=== PATIENT | male | born 1960 | race Caucasian/White ===

== ENCOUNTER 2018-07-14 19:27 | Observation (INO) | payer OTHER ==
[2018-07-14 19:42] LABS: ADD MAN DIFF? NO
[2018-07-14] MEDS: NITROGLYCERIN 2% 1 GM OINT PKT TD (19:43)
[2018-07-14] MEDS: LORAZEPAM 2 MG INJ IV (19:43)
[2018-07-14 19:47] LABS: BASOPHIL # 0.1 10^3/ul (0.0-0.1); EOSINOPHILS # 0.3 10^3/ul (0.0-0.5); EOSINOPHILS % 4.1 % (0.0-7.0); HEMATOCRIT 47.7 % (42.0-52.0); HEMOGLOBIN 16.3 g/dl (14.0-18.0); LYMPHOCYTES # 2.4 10^3/ul (0.8-2.9); LYMPHOCYTES % 30.6 % (15.0-51.0); MEAN CORPUSCULAR HEMOGLOBIN 31.7 pg (29.0-33.0); MEAN CORPUSCULAR HGB CONC 34.2 g/dl (32.0-37.0); MEAN CORPUSCULAR VOLUME 92.6 fl (82.0-101.0); MEAN PLATELET VOLUME 9.9 fl (7.4-10.4); MONOCYTE # 0.8 10^3/ul (0.3-0.9); NEUTROPHIL # 4.2 10^3/ul (1.6-7.5); NEUTROPHILS % 53.9 % (39.0-77.0); PLATELET COUNT 221 10^3/UL (140-415); RED BLOOD COUNT 5.15 10^6/ul (4.70-6.10); RED CELL DISTRIBUTION WIDTH 13.8 % (11.5-14.5)
[2018-07-14 19:47] LABS: WHITE BLOOD COUNT 7.9 10^3/ul (4.8-10.8)
[2018-07-14 20:06] LABS: ANION GAP 19 (5-13); BLOOD UREA NITROGEN 19 mg/dl (7-20); CALCIUM 9.4 mg/dl (8.4-10.2); CARBON DIOXIDE 20 mmol/L (21-31); CHLORIDE 103 mmol/L (97-110); CREATININE 1.28 mg/dl (0.61-1.24); Estimated GFR 58 mL/min (>60); GLUCOSE 92 mg/dl (70-220); SODIUM 142 mmol/L (135-144)
[2018-07-14 20:17] LABS: TROPONIN-I 0.029 ng/ml (0.000-0.120)
[2018-07-14] MEDS ORDERED: ONDANSETRON 4 MG INJ IV (21:00)
[2018-07-14] MEDS ORDERED: ACETAMINOPHEN 325 MG TAB PO (21:00)
[2018-07-15 03:17] LABS: CREATINE KINASE 154 IU/L (23-200)
[2018-07-15 03:30] LABS: CK INDEX 0.9; CK-MB 1.44 ng/ml (0.0-2.4); TROPONIN-I 0.016 ng/ml (0.000-0.120)
[2018-07-15] MEDS ORDERED: NITROGLYCERIN (SL) 0.4 MG TAB SL (03:30)
[2018-07-15] MEDS ORDERED: ONDANSETRON 4 MG INJ IV (03:30)
[2018-07-15] MEDS ORDERED: NACL 0.9% 3 ML SYG IV (03:30)
[2018-07-15 07:51] LABS: ADD MAN DIFF? NO
[2018-07-15 07:55] LABS: WHITE BLOOD COUNT 4.4 10^3/ul (4.8-10.8)
[2018-07-15 07:55] LABS: BASOPHIL # 0.1 10^3/ul (0.0-0.1); BASOPHILS % 1.1 % (0.0-2.0); EOSINOPHILS # 0.3 10^3/ul (0.0-0.5); EOSINOPHILS % 6.8 % (0.0-7.0); HEMATOCRIT 47.1 % (42.0-52.0); HEMOGLOBIN 15.8 g/dl (14.0-18.0); LYMPHOCYTES # 1.3 10^3/ul (0.8-2.9); LYMPHOCYTES % 30.2 % (15.0-51.0); MEAN CORPUSCULAR HEMOGLOBIN 31.5 pg (29.0-33.0); MEAN CORPUSCULAR HGB CONC 33.5 g/dl (32.0-37.0); MEAN CORPUSCULAR VOLUME 93.8 fl (82.0-101.0); MEAN PLATELET VOLUME 9.7 fl (7.4-10.4); MONOCYTE # 0.6 10^3/ul (0.3-0.9); MONOCYTES % 12.8 % (0.0-11.0); NEUTROPHIL # 2.2 10^3/ul (1.6-7.5); NEUTROPHILS % 48.6 % (39.0-77.0); PLATELET COUNT 164 10^3/UL (140-415); RED BLOOD COUNT 5.02 10^6/ul (4.70-6.10)
[2018-07-15 08:05] LABS: HEMOGLOBIN A1C 5.4 % (0-5.9)
[2018-07-15 08:14] LABS: CREATINE KINASE 143 IU/L (23-200)
[2018-07-15 08:16] LABS: ALANINE AMINOTRANSFERASE 33 IU/L (13-69); ALBUMIN 4.2 g/dl (3.3-4.9); ALBUMIN/GLOBULIN RATIO 1.13; ALKALINE PHOSPHATASE 83 IU/L (42-121); ANION GAP 11 (5-13); ASPARTATE AMINO TRANSFERASE 46 IU/L (15-46); BILIRUBIN,INDIRECT 0.8 mg/dl (0-1.1); BILIRUBIN,TOTAL 0.8 mg/dl (0.2-1.3); BLOOD UREA NITROGEN 14 mg/dl (7-20); CALCIUM 8.9 mg/dl (8.4-10.2); CARBON DIOXIDE 27 mmol/L (21-31); CHLORIDE 104 mmol/L (97-110); CHOL/HDL RATIO 3.2 RATIO; CHOLESTEROL 230 mg/dl (100-200); CREATININE 0.99 mg/dl (0.61-1.24); Estimated GFR > 60 mL/min (>60); GLUCOSE 105 mg/dl (70-220); HDL CHOLESTEROL 71 mg/dl (28-71); LDL CHOLESTEROL,CALCULATED 130 mg/dl; MAGNESIUM 2.2 mg/dl (1.7-2.5); POTASSIUM 4.1 mmol/L (3.5-5.1); SODIUM 142 mmol/L (135-144); TOTAL PROTEIN 7.9 g/dl (6.1-8.1); TRIGLYCERIDES 145 mg/dl (0-149)
[2018-07-15 08:26] LABS: TROPONIN-I 0.034 ng/ml (0.000-0.120)
[2018-07-15] MEDS: ASPIRIN 81 MG TAB PO (09:51)
[2018-07-15] MEDS: HEPARIN 5,000 UNIT/1 ML VIAL SC ×2 (09:51→21:26)
[2018-07-15] MEDS: ALBUTEROL/IPRATROPIUM (NEB) 3 ML AMP HHN (11:36)
[2018-07-15] MEDS: ATORVASTATIN 40 MG TAB PO (21:04)
[2018-07-15] MEDS: GUAIFENESIN/DM 5ML CUP PO (22:10)
[2018-07-15] MEDS: ZOLPIDEM 5 MG TAB PO (22:10)
[2018-07-15] MEDS: ACETAMINOPHEN 325 MG TAB PO (22:10)
[2018-07-16] MEDS: AMLODIPINE 10 MG TAB PO ×2 (05:13→08:34)
[2018-07-16 06:10] LABS: ADD MAN DIFF? NO
[2018-07-16 06:19] LABS: WHITE BLOOD COUNT 5.7 10^3/ul (4.8-10.8)
[2018-07-16 06:19] LABS: BASOPHIL # 0.1 10^3/ul (0.0-0.1); BASOPHILS % 1.1 % (0.0-2.0); EOSINOPHILS # 0.4 10^3/ul (0.0-0.5); EOSINOPHILS % 6.5 % (0.0-7.0); HEMATOCRIT 50.4 % (42.0-52.0); HEMOGLOBIN 16.7 g/dl (14.0-18.0); LYMPHOCYTES # 1.8 10^3/ul (0.8-2.9); LYMPHOCYTES % 30.9 % (15.0-51.0); MEAN CORPUSCULAR HEMOGLOBIN 31.3 pg (29.0-33.0); MEAN CORPUSCULAR HGB CONC 33.1 g/dl (32.0-37.0); MEAN CORPUSCULAR VOLUME 94.6 fl (82.0-101.0); MONOCYTE # 0.7 10^3/ul (0.3-0.9); MONOCYTES % 11.4 % (0.0-11.0); NEUTROPHIL # 2.8 10^3/ul (1.6-7.5); NEUTROPHILS % 49.7 % (39.0-77.0); PLATELET COUNT 173 10^3/UL (140-415); RED BLOOD COUNT 5.33 10^6/ul (4.70-6.10); RED CELL DISTRIBUTION WIDTH 13.5 % (11.5-14.5)
[2018-07-16 06:32] LABS: INR 0.91; PROTIME 12.4 Sec (11.9-14.9)
[2018-07-16 06:46] LABS: TROPONIN-I 0.028 ng/ml (0.000-0.120)
[2018-07-16 06:49] LABS: LIPASE 104 U/L (23-300)
[2018-07-16 06:50] LABS: ANION GAP 10 (5-13); BLOOD UREA NITROGEN 18 mg/dl (7-20); CALCIUM 9.7 mg/dl (8.4-10.2); CARBON DIOXIDE 27 mmol/L (21-31); CHLORIDE 105 mmol/L (97-110); CREATININE 1.16 mg/dl (0.61-1.24); Estimated GFR > 60 mL/min (>60); GLUCOSE 97 mg/dl (70-220); MAGNESIUM 2.3 mg/dl (1.7-2.5); PHOSPHORUS 3.7 mg/dl (2.5-4.9); POTASSIUM 4.4 mmol/L (3.5-5.1); SODIUM 142 mmol/L (135-144)
[2018-07-16] MEDS: ASPIRIN 81 MG TAB PO (08:22)
[2018-07-16] MEDS: CLOPIDOGREL 75 MG TAB PO (08:22)
[2018-07-16] MEDS: HEPARIN 5,000 UNIT/1 ML VIAL SC (08:28)
[2018-07-16] MEDS ORDERED: ZOLPIDEM 5 MG TAB PO (21:00)
[2018-07-17] MEDS ORDERED: AMLODIPINE 10 MG TAB PO (09:00)
== END 2018-07-16 13:10 | disposition home or self-care (01) ==
LOC: E/R 19:27 → TEL 20:32
DX: R07.9 Chest pain, unspecified (principal); F17.200 Nicotine dependence, unspecified, uncomplicated; I10 Essential (primary) hypertension; E78.5 Hyperlipidemia, unspecified; Z79.82 Long term (current) use of aspirin
CPT/HCPCS: 36415; 71045; 80048; 80053; 80061; 82550; 82553; 83036; 83690; 83735; 84100; 84443; 84484; 85025; 85610; 87400; 93005; 94664; 96374; 99285-25; G0378

== ENCOUNTER 2018-08-21 01:02 | Emergency (ER) | payer OTHER ==
[2018-08-21] MEDS ORDERED: LIDOCAINE 2%/EPI MPF (SDV) 20 ML VIAL INJ (01:14)
[2018-08-21] MEDS: LIDOCAINE 2%/EPI (MDV) 20ML INJ INJ (02:00)
[2018-08-21] MEDS: IBUPROFEN 800 MG TAB PO (04:53)
== END 2018-08-21 05:37 | disposition home or self-care (01) ==
LOC: E/R 01:02
DX: S02.2XXA Fracture of nasal bones, initial encounter for closed fracture (principal); I10 Essential (primary) hypertension; J44.9 Chronic obstructive pulmonary disease, unspecified; I25.10 Atherosclerotic heart disease of native coronary artery without angina pectoris; F17.210 Nicotine dependence, cigarettes, uncomplicated; S06.0X0A Concussion without loss of consciousness, initial encounter; S01.81XA Laceration without foreign body of other part of head, initial encounter; Y09 Assault by unspecified means; Z79.82 Long term (current) use of aspirin
CPT/HCPCS: 12013; 70450; 71045; 73550; 93005; 99285-25